=== PATIENT | female | born 1955 | race Caucasian/White ===

== ENCOUNTER 2017-03-12 14:36 | Inpatient (IN) | payer OTHER ==
[~2017-03-12] VITALS: Ht 165.1 cm; Wt 99.8 kg
[~2017-03-12 14:36] MED LIST: ALBUTEROL 90MCG INH; AMLO5TAB4 PO; BUSP5TAB PO; CALC-157 PO; CETI10TA22 PO; CLON0.5T PO; CYCL-331 PO; ESCI20TA PO; FISH OIL PO; FLUT1DIS3 IH; FURO-69 PO; GABA-585 PO; HYDR-2758 PO; MINERALS PO; MONT10TA6 PO; MVI PO; OXYC-323 PO; PANT40TA5 PO; PRAM0.255 PO; TRIA1CAP13 PO; VITAMIN D 3 PO
--- NOTE | 2017-03-12 15:03 | PHYS DOC ---
General Chief Complaint: OVERDOSE Stated Complaint: DRUG INTAKE Time Seen by MD: 14:42 Source: patient Exam Limitations: no limitations Problems: History of Present Illness Initial Comments Pt is 61/F to ED with spouse for suicide attempt/intentional overdose. Pt states this am approximately 0100 she intentionally took between 24-27 1mg klonopin tabs. States this was deliberate attempt to end her life, she voices desire to in ED. She is drowsy but rouses to verbal stimuli, protecting her airway. No pain complaints. "I am not here wanting help." "How many should I take next time to see that I ." Pt does not answer when asked about stressors, her spouse recently diagnosed schizoaffective disorder and they both have new "therapy dog." Timing/Duration: other Severity: severe Modifying Factors: worse with medication, worse with movement, improves with rest Associated Symptoms: malaise, weakness, other Allergies: Coded Allergies: No Known Drug Allergies (Unverified , 09/01/15) Past Medical History Medical History: other (HTN, obesity, ANGEL, restless leg, CKD, gastric ulcer, asthma, uterine cancer) Surgical History: other (b/l TKR, ric, hysterectomy, tonsillectomy, trigger finger release, carpal tunnel, transposition L ulnar nerve) Social History Smoker: quit greater than 1 year Alcohol: none Drugs: none Review of Systems Constitutional: denies diaphoresis, denies fever EENTM: denies eye pain, denies ear pain, denies nose pain Respiratory: denies cough, denies shortness of breath Cardiovascular: denies chest pain, denies palpitations Gastrointestinal: denies diarrhea, denies nausea, denies vomiting Musculoskeletal: denies back pain, denies joint swelling, denies neck pain Psychiatric/Neurological: see HPI Physical Exam General Appearance: no apparent distress (drowsy/lethargic) Eyes: bilateral eye normal inspection, bilateral eye PERRL, bilateral eye EOMI Ear, Nose, Throat: hearing grossly normal, normal ENT inspection, normal pharynx Neck: non-tender, supple Respiratory: normal breath sounds, no respiratory distress Cardiovascular: normal peripheral pulses, regular rate, rhythm Gastrointestinal: non tender, soft Back: no CVA tenderness, no vertebral tenderness Extremities: normal range of motion, normal inspection Neurologic/Psychiatric: administration professional II-XII nml as tested, no motor/sensory deficits, oriented x 3, depressed affect, other (sleepy but easily rousable, +SI) Skin: normal color, warm/dry Orders, Labs, Meds EKG: NSR 81 bpm, diffuse T flattening no STEMI RN contacted poison control, labs/EKG recommended and ordered. No activated charcoal due to buspar, recommend overnight admission/observation for VS stability/seizure potential. I discussed this with Dr Rehman who accepts ICU admission (needs 1:1) Departure Disposition: ADMITTED INPATIENT Diagnosis: suicide attempt, bzd overdose Condition: GUARDED MICHELLE TODD DO March 12, 2017 15:03
--- NOTE | 2017-03-12 15:21 | RAD ---
EXAM: CHEST 1 VIEW History: Overdose, lethargy, weakness. Comparison: 09/01/2015 TECHNIQUE: Single portable radiograph of the chest FINDINGS: The cardiac silhouette is unremarkable. The lungs are clear bilaterally. The costophrenic sulci are clear and well demarcated. IMPRESSION: No radiographic evidence of an acute cardiopulmonary process.
[2017-03-12 15:41] LABS: BASO % 1 % (0-3); EOS # 0.2 x10^3/uL (0.0-0.7); EOS % 5 % (0-3); HEMATOCRIT 35.3 % (36.0-47.0); LYMPH % 31 % (24-48); MEAN CORPUSCULAR HEMOGLOBIN 28 pg (25-35); MEAN CORPUSCULAR HGB CONC 34 g/dL (31-37); MEAN CORPUSCULAR VOLUME 81 fL (79-100); MONO # 0.5 x10^3/uL (0.0-1.1); MONO % 16 % (0-9); NEUT # 1.5 x10^3uL (1.8-7.7); NEUT % 46 % (31-73); PLATELET COUNT 216 x10^3/uL (140-400); RED BLOOD COUNT 4.35 x10^6/uL (3.50-5.40); RED CELL DISTRIBUTION WIDTH 14.4 % (11.5-14.5); WHITE BLOOD COUNT 3.3 x10^3/uL (4.0-11.0)
[2017-03-12] MEDS ORDERED: ACETAMINOPHEN 325 MG TABLET PO PRN (16:00)
[2017-03-12] MEDS ORDERED: ONDANSETRON PF 4 MG/2 ML VIAL. IV PRN (16:00)
[2017-03-12 16:04] LABS: ALBUMIN 3.1 g/dL (3.4-5.0); CREATININE 0.7 mg/dL (0.6-1.0); GFR 85.4; POTASSIUM 3.4 mmol/L (3.5-5.1); TOTAL BILIRUBIN 0.4 mg/dL (0.2-1.0); TOTAL PROTEIN 6.1 g/dL (6.4-8.2)
[2017-03-12 16:20] LABS: BARBITURATES NEG (NEG); BENZODIAZEPINES POS (NEG); CANNABINOIDS NEG (NEG); COCAINE NEG (NEG); METHADONE NEG (NEG); OPIATES NEG (NEG); PHENCYCLIDINE NEG (NEG)
[2017-03-12 16:25] LABS: BILIRUBIN,URINE NEG (NEG); CLARITY,URINE CLEAR; COLOR,URINE STRAW; GLUCOSE,URINE NEG (NEG); NITRITE,URINE NEG (NEG); UROBILINOGEN,URINE 0.2 mg/dL (0.2 mg/dL)
[2017-03-12 16:26] LABS: AMORPHOUS SEDIMENT,UR PRESENT /HPF; BACTERIA,URINE 0 /HPF (0-FEW); RBC,URINE 0 /HPF (0-2); SQUAMOUS EPITHELIAL CELL,UR OCC /LPF; WBC,URINE OCC /HPF (0-4)
[2017-03-12 16:31] LABS: AMPHETAMINE/METHAMPHETAMINE NEG (NEG)
[2017-03-12 17:00] VITALS: BP 148/65
[2017-03-12] MEDS: IV NORMAL SALINE 1,000ML 1,000 ML IV SCH (17:59)
[2017-03-12 18:03] VITALS: BP 115/53
[2017-03-12] MEDS ORDERED: VALS80TA3 PO (18:17)
[2017-03-12] MEDS ORDERED: TRIA1CAP3 PO (18:20)
[2017-03-12] MEDS ORDERED: FLUO40CA9 PO (18:21)
[2017-03-12] MEDS ORDERED: ALBUTEROL SULFATE 2.5 MG/0.5 ML NEBU. NEB PRN (19:00)
--- NOTE | 2017-03-12 19:07 | ACF ---
Admission Criteria Forms DRUG INGESTION OR OVERDOSE Clinical Indications for Admission to Inpatient Care ( Place 'X' for any and all applicable criteria): Admission is indicated for severe toxicity as indicated by ANY ONE of the following(1)(2)(3)(4)(5)(6): [X]I. Inpatient admission required rather than observation care (Also use Drug Ingestion or Overdose: Observation Care guideline as appropriate) because of ANY ONE of the following: [ ]a) Altered mental status that is severe or persistent [ ]b) Clinical finding (eg, metabolic acidosis, hypoglycemia, bradycardia) that is severe or persistent [ ]c) Toxic drug level that is persistent [X]d) Psychiatric risk status not acceptable for outpatient management [ ]e) Continuous intravenous infusion of anticoagulation, platelet inhibitor, vasoactive, or antiarrhythmic medication (15)(16) [ ]f) Other condition, treatment or monitoring requiring inpatient admission [ ]II. Respiratory abnormalities [ ]III. Specific finding indicating severe and likely prolonged drug toxicity [ ]IV. Hemodynamic instability [ ]V. Dangerous arrhythmia [ ]. Hypertension requiring inpatient treatment Extended stay beyond goal length of stay may be needed for (4): [ ]a) Neurologic or respiratory compromise [ ]b) Hemodynamic instability [ ]c) Persistent toxic drug levels (25) [ ]d) Severe drug toxicities or complications [ ]e) Ongoing antidote treatment (eg, acetaminophen overdose)(5) [ ]f) Older patients(65 years or older) The original [employer] content created by [employer] has been revised. The portions of the content which have been revised are identified through the use of italic text or in bold, and [facility] has neither reviewed nor approved the modified material. All other unmodified content is copyright [facility]. Please see references footnoted in the original [facility] edition 2016 Admission Criteria Met?: Yes QUINCY MANZANO March 12, 2017 19:06
[2017-03-12 19:10] VITALS: BP 107/54
--- NOTE | 2017-03-12 19:59 | PDOC ---
Exam Ja Demential Exam: Ja Note: Please also refer to the separate dictated note~for this date of service dictated separately.~Patient seen individually. Discussed the patient with Nursing staff reviewed the chart.~Reviewed interim history and current functioning. Reviewed vital signs,~Labs/ Radiology~and current medications noted below. Continue current treatment with the changes noted in the dictated addendum note Assessment: Vital Signs: Vital Signs Date Time Temp Pulse Resp B/P (MAP) Pulse Ox O2 Delivery O2 Flow Rate FiO2 03/12/17 19:10 64 16 107/54 (71) 99 Room Air 03/12/17 17:00 98.2 Labs: Laboratory Tests Test 03/12/17 15:11 03/12/17 15:40 White Blood Count 3.3 x10^3/uL (4.0-11.0) L Red Blood Count 4.35 x10^6/uL (3.50-5.40) Hemoglobin 12.0 g/dL (12.0-15.5) Hematocrit 35.3 % (36.0-47.0) L Mean Corpuscular Volume 81 fL (79-100) Mean Corpuscular Hemoglobin 28 pg (25-35) Mean Corpuscular Hemoglobin Concent 34 g/dL (31-37) Red Cell Distribution Width 14.4 % (11.5-14.5) Platelet Count 216 x10^3/uL (140-400) Neutrophils (%) (Auto) 46 % (31-73) Lymphocytes (%) (Auto) 31 % (24-48) Monocytes (%) (Auto) 16 % (0-9) H Eosinophils (%) (Auto) 5 % (0-3) H Basophils (%) (Auto) 1 % (0-3) Neutrophils # (Auto) 1.5 x10^3uL (1.8-7.7) L Lymphocytes # (Auto) 1.0 x10^3/uL (1.0-4.8) Monocytes # (Auto) 0.5 x10^3/uL (0.0-1.1) Eosinophils # (Auto) 0.2 x10^3/uL (0.0-0.7) Basophils # (Auto) 0.0 x10^3/uL (0.0-0.2) Sodium Level 138 mmol/L (136-145) Potassium Level 3.4 mmol/L (3.5-5.1) L Chloride Level 101 mmol/L (98-107) Carbon Dioxide Level 29 mmol/L (21-32) Anion Gap 8 (6-14) Blood Urea Nitrogen 12 mg/dL (7-20) Creatinine 0.7 mg/dL (0.6-1.0) Estimated GFR (Cockcroft-Gault) 85.4 BUN/Creatinine Ratio 17 (6-20) Glucose Level 144 mg/dL (70-99) H Lactic Acid Level 0.8 mmol/L (0.4-2.0) Calcium Level 9.0 mg/dL (8.5-10.1) Total Bilirubin 0.4 mg/dL (0.2-1.0) Aspartate Amino Transferase (AST) 25 U/L (15-37) Alanine Aminotransferase (ALT) 48 U/L (14-59) Alkaline Phosphatase 134 U/L (46-116) H Creatine Kinase 242 U/L (26-192) H Troponin I Quantitative < 0.017 ng/mL (0-0.055) OL-Isv-H-Type Natriuretic Peptide 94 pg/mL (0-124) Total Protein 6.1 g/dL (6.4-8.2) L Albumin 3.1 g/dL (3.4-5.0) L Albumin/Globulin Ratio 1.0 (1.0-1.7) Urine Collection Type Unknown Urine Color Straw Urine Clarity Clear Urine pH 7.0 Urine Specific [place] 1.010 Urine Protein Neg (NEG-TRACE) Urine Glucose (UA) Neg mg/dL (NEG) Urine Ketones (Stick) Neg mg/dL (NEG) Urine Blood Neg (NEG) Urine Nitrite Neg (NEG) Urine Bilirubin Neg (NEG) Urine Urobilinogen Dipstick 0.2 mg/dL (0.2 mg/dL) Urine Leukocyte Esterase Neg (NEG) Urine RBC 0 /HPF (0-2) Urine WBC Occ /HPF (0-4) Urine Squamous Epithelial Cells Occ /LPF Urine Amorphous Sediment Present /HPF Urine Bacteria 0 /HPF (0-FEW) Urine Mucus Slight /LPF Urine Opiates Screen Neg (NEG) Urine Methadone Screen Neg (NEG) Urine Barbiturates Neg (NEG) Urine Phencyclidine Screen Neg (NEG) Urine Amphetamine/Methamphetamine Neg (NEG) Urine Benzodiazepines Screen Pos (NEG) Urine Cocaine Screen Neg (NEG) Urine Cannabinoids Screen Neg (NEG) Urine Ethyl Alcohol Neg (NEG) Current Medications: Meds: Current Medications Ondansetron HCl (Zofran) 4 mg PRN Q4HRS PRN IV NAUSEA/VOMITING; Start 03/12/17 at 16:00; Stop 03/13/17 at 15:59 Sodium Chloride 1,000 ml @ 120 mls/hr Q8H20M IV Last administered on t 17:59; Start 03/12/17 at 16:15; Stop 03/13/17 at 16:14 Acetaminophen (Tylenol) 650 mg PRN Q4HRS PRN PO FEVER; Start 03/12/17 at 16:00 ; Stop 03/13/17 at 15:59 Potassium Chloride (Klor-Con) 20 meq BID PO ; Start 03/12/17 at 21:00 Buspirone HCl (Buspar) 15 mg BID PO ; Start 03/12/17 at 21:00 Calcium/Vitamin D (Oscal D 500mg/ 200uts) 1 tab BID PO ; Start 03/12/17 at 21:00 Cetirizine HCl (Zyrtec) 10 mg DAILY PO ; Start 03/13/17 at 09:00 Montelukast Sodium (Singulair) 10 mg HS PO ; Start 03/12/17 at 21:00 Pantoprazole Sodium (Protonix) 40 mg DAILYAC PO ; Start 03/13/17 at 07:30 Pramipexole Dihydrochloride (miraPEX) 1.5 mg QHS PO ; Start 03/12/17 at 21:00 Fluoxetine HCl (Prozac) 40 mg DAILY PO ; Start 03/13/17 at 09:00 Budesonide (Pulmicort) 0.5 mg RTBID NEB ; Start 03/12/17 at 20:00 Triamterene/HCTZ (Maxzide 37.5/ 25mg) 1 tab DAILY PO ; Start 03/13/17 at 09:00 Losartan Potassium (Cozaar) 50 mg DAILY PO ; Start 03/13/17 at 09:00 Albuterol Sulfate (Ventolin) 2.5 mg PRN Q4HRS PRN NEB SOA; Start 03/12/17 at 19 :00 Fish Oil (Fish Oil) 1,000 mg BID PO ; Start 03/12/17 at 21:00 Multivitamins/ Calcium (Thera-M Plus) 1 tab DAILY PO ; Start 03/13/17 at 09:00 Vitamin D (Vitamin D3) 2,000 unit DAILY PO ; Start 03/13/17 at 09:00 Albuterol Sulfate (Ventolin) 2.5 mg RTQID NEB ; Start 03/12/17 at 20:00 Active Scripts Active Reported Prozac (Fluoxetine Hcl) 40 Mg Capsule 1 Cap PO DAILY Triamterene-Hctz 37.5-25 Mg Cp (Triamterene/Hydrochlorothiazid) 1 Each Capsule 1 Cap PO DAILY Diovan (Valsartan) 80 Mg Tablet 1 Tab PO DAILY Zyrtec (Cetirizine Hcl) 10 Mg Tablet 1 Tab PO DAILY LAST DOSE GIVEN: DATE: TIME: NEXT DOSE DUE: DATE: TIME: [Vitamin D 3] 2,000 Intlu PO BID LAST DOSE GIVEN: DATE: TIME: NEXT DOSE DUE: DATE: TIME: [Fish Oil] 1,200 Mg PO BID LAST DOSE GIVEN: DATE: TIME: NEXT DOSE DUE: DATE: TIME: [Mvi + Minerals] 1 PO DAILY LAST DOSE GIVEN: DATE: TIME: NEXT DOSE DUE: DATE: TIME: Mirapex (Pramipexole Di-Hcl) 0.25 Mg Tablet 1.5 Mg PO QHS LAST DOSE GIVEN: DATE: TIME: NEXT DOSE DUE: DATE: TIME: Cyclobenzaprine Hcl 10 Mg Tablet 1 Tab PO PRN QHS PRN LAST DOSE GIVEN: DATE: TIME: NEXT DOSE DUE: DATE: TIME: Calcium 500 + Vit D 200 Tablet (Calcium Carbonate/Vitamin D3) 1 Each Tablet 1 Each PO BID LAST DOSE GIVEN: DATE: TIME: NEXT DOSE DUE: DATE: TIME: [Albuterol 90MCG] 90 Mcg INH PRN Q4-6HRS PRN LAST DOSE GIVEN: DATE: TIME: NEXT DOSE DUE: DATE: TIME: Singulair Tablet (Montelukast Sodium) 10 Mg Tablet 10 Tab PO HS LAST DOSE GIVEN: DATE: TIME: NEXT DOSE DUE: DATE: TIME: Advair 250-50 Diskus (Fluticasone/Salmeterol) 1 Each Disk.w.dev 1 Puff IH BID LAST DOSE GIVEN: DATE: TIME: NEXT DOSE DUE: DATE: TIME: Klonopin (Clonazepam) 0.5 Mg Tablet 1 Tab PO HS LAST DOSE GIVEN: DATE: TIME: NEXT DOSE DUE: DATE: TIME: Buspirone Hcl 5 Mg Tablet 15 Mg PO BID LAST DOSE GIVEN: DATE: TIME: NEXT DOSE DUE: DATE: TIME: Pantoprazole Sodium 40 Mg Tablet.dr 1 Tab PO DAILYAC LAST DOSE GIVEN: DATE: TIME: NEXT DOSE DUE: DATE: TIME: DAVION REYES MD March 12, 2017 19:59
[2017-03-12 20:00] VITALS: BP 110/52
[2017-03-12] MEDS: BUDESONIDE 0.5 MG/2 ML NEBU NEB SCH (20:00)
[2017-03-12] MEDS: ALBUTEROL SULFATE 2.5 MG/0.5 ML NEBU. NEB SCH (20:00)
[2017-03-12] MEDS ORDERED: PRAMIPEXOLE 0.25 MG TABLET. PO SCH (21:00)
[2017-03-12] MEDS: MONTELUKAST 10 MG TABLET. PO SCH (21:02)
[2017-03-12] MEDS: CALCIUM CARB/VIT D3 500/200 TABLET PO SCH (21:02)
[2017-03-12] MEDS: OMEGA-3 FATTY ACIDS/FISH OIL 1,000 MG CAPSULE. PO SCH (21:02)
[2017-03-12] MEDS: POTASSIUM CHLORIDE 20 MEQ TABLET.ER. PO SCH (21:02)
[2017-03-12] MEDS: busPIRone 5 MG TABLET. PO SCH (21:03)
[2017-03-12 22:00] VITALS: BP 107/50
[2017-03-12 23:00] VITALS: BP 98/44
[2017-03-13] VITALS (20 sets, daily range): BP systolic 99–144; BP diastolic 49–79
[2017-03-13] MEDS: IV NORMAL SALINE 1,000ML 1,000 ML IV SCH ×2 (01:49→10:14)
[2017-03-13 03:37] LABS: BASO # 0.1 x10^3/uL (0.0-0.2); BASO % 2 % (0-3); EOS # 0.2 x10^3/uL (0.0-0.7); EOS % 5 % (0-3); HEMOGLOBIN 10.7 g/dL (12.0-15.5); LYMPH # 1.2 x10^3/uL (1.0-4.8); LYMPH % 36 % (24-48); MEAN CORPUSCULAR HEMOGLOBIN 27 pg (25-35); MEAN CORPUSCULAR HGB CONC 33 g/dL (31-37); MEAN CORPUSCULAR VOLUME 82 fL (79-100); MONO # 0.5 x10^3/uL (0.0-1.1); MONO % 14 % (0-9); NEUT # 1.5 x10^3uL (1.8-7.7); NEUT % 44 % (31-73); PLATELET COUNT 185 x10^3/uL (140-400); RED BLOOD COUNT 3.91 x10^6/uL (3.50-5.40); RED CELL DISTRIBUTION WIDTH 14.6 % (11.5-14.5); WHITE BLOOD COUNT 3.3 x10^3/uL (4.0-11.0)
[2017-03-13 04:17] LABS: CALCIUM 8.6 mg/dL (8.5-10.1); CREATININE 0.8 mg/dL (0.6-1.0); GFR 73.2; POTASSIUM 3.5 mmol/L (3.5-5.1)
[2017-03-13 06:58] LABS: ACETAMIN 4.5 mcg/mL (10-30)
[2017-03-13] MEDS: busPIRone 5 MG TABLET. PO SCH ×2 (07:44→21:32)
[2017-03-13] MEDS: CHOLECALCIFEROL (VITAMIN D3) 1,000 UNIT TABLET PO SCH (07:44)
[2017-03-13] MEDS: TRIAMTERENE/HCTZ 37.5/25MG TABLET. PO SCH (07:45)
[2017-03-13] MEDS: MULTIVITAMIN with MINERAL TABLET. PO SCH (07:45)
[2017-03-13] MEDS: CETIRIZINE HCL 10 MG TABLET PO SCH (07:45)
[2017-03-13] MEDS: PANTOPRAZOLE 40 MG TABLET. PO SCH (07:45)
[2017-03-13] MEDS: LOSARTAN 50 MG TABLET. PO SCH (07:45)
[2017-03-13] MEDS: POTASSIUM CHLORIDE 20 MEQ TABLET.ER. PO SCH ×2 (07:45→21:33)
[2017-03-13] MEDS: OMEGA-3 FATTY ACIDS/FISH OIL 1,000 MG CAPSULE. PO SCH ×2 (07:45→21:34)
[2017-03-13] MEDS: CALCIUM CARB/VIT D3 500/200 TABLET PO SCH ×2 (07:45→21:32)
[2017-03-13] MEDS: ALBUTEROL SULFATE 2.5 MG/0.5 ML NEBU. NEB SCH ×4 (08:00→20:32)
[2017-03-13] MEDS ORDERED: ARIP5TAB13 PO (08:49)
--- NOTE | 2017-03-13 09:45 | EKG ---
[address] [address] Test Date: 2017-03-12 Test Time: 14:54:20 Pat Name: YELENA MORGAN Department: Room: [facility] 1 Gender: F Market Research Specialist: BARBARA : [id number] Requested By: MICHELLE TODD Order Number: [id number] Reading MD: Doyle Latham Measurements Intervals [place] Rate: 81 P: 55 MT: 154 QRS: -1 QRSD: 84 T: 31 QT: 392 QTc: 456 Interpretive Statements SINUS RHYTHM Electronically Signed On 03-14-2017 10:38:55 CDT by Doyle Latham
[2017-03-13] MEDS ORDERED: POTASSIUM CHLORIDE 20 MEQ TABLET.ER. PO ONE (10:30)
[2017-03-13] MEDS: BUDESONIDE 0.5 MG/2 ML NEBU NEB SCH ×2 (11:54→20:32)
[2017-03-13] MEDS: FLUoxetine HCL 20 MG CAPSULE PO SCH (12:13)
--- NOTE | 2017-03-13 13:10 | HP ---
ADMIT DATE: 03/12/2017 HISTORY OF PRESENT ILLNESS: This is a 61-year-old female who has a longstanding problem with depression and anxiety which she states for the last [address]. [address] Miramontes last Monday who prescribed Abilify 2.5 mg tablets, but she just has been despondent over multiple things, so took 24 to 27 1 mg Klonopin tablets. She was brought to Emergency Room by her . The patient states her has been diagnosed with schizoaffective borderline personality disorder and he is not able to meet her emotional needs. She has also been going to a counselor in [place] who only takes jimenez and she can no longer afford to go to him. The patient feels that she needs hospitalization for her ongoing depression. PAST MEDICAL HISTORY: Depression, anxiety, hypertension, obstructive sleep apnea, restless legs syndrome, chronic kidney disease, reflux and asthma. She does use CPAP. She has severe insomnia and arthritis. PAST SURGICAL HISTORY: Recent bone on her left thumb removed for arthritis 2 weeks ago, hysterectomy for uterine cancer in 2013, bilateral total knee arthroplasty, cholecystectomy, tonsillectomy and has had EGDs and colonoscopies. ALLERGIES: None. MEDICATIONS: The patient had a list which should be accurate on the computer on the eMAR, previous antidepressants, Celexa, Paxil, Lamictal and Lexapro, but she is currently on Prozac. HABITS: The patient does not work, does not smoke, but did drink some alcohol along with the Klonopin about third of a couple of some type of liquor. REVIEW OF SYSTEMS: Eight pound weight gain in the last 2 weeks, insomnia, ongoing depression, restless legs, very anxious and tearful and anxiety. OBJECTIVE: VITAL SIGNS: Blood pressure 112/63, pulse 88, respirations 20 and pulse ox is 94% on room air. Height 65 inches, weight 218 pounds. GENERAL: A 61-year-old somewhat tearful, in no acute distress. HEENT: Her hearing was normal. Her pupils were equal, round, react to light. Extraocular muscles were intact. ____. Nose was patent. Throat was clear. Wide scars of tonsillectomy noted. NECK: Supple, without adenopathy. LUNGS: Clear to auscultation. CARDIOVASCULAR: Regular rhythm and rate. ABDOMEN: Soft, nontender, no masses palpated. EXTREMITIES: Without edema. Left forearm and hand are in a cast. NEUROLOGIC: She is intact. Her mood is flat and tearful. LABORATORY DATA: White cell count 3.3, hemoglobin 10.7, hematocrit 32.0 that is after fluid. Chemistry negative troponins, potassium is 3.5 this morning, was 3.4 yesterday. Drug screen is positive for benzos, negative for alcohol. Urinalysis is negative. Chest x-ray is negative. ASSESSMENT: 1. Suicide attempt. 2. Major depressive disorder. 3. Ongoing longstanding depression and anxiety. 4. Severe insomnia. 5. History of uterine cancer. 6. Mild hypokalemia. PLAN: Treat hypokalemia if it has not been treated. The patient desires hospitalization for depression. Dr. Miramontes will see this afternoon and we will treat her medical conditions. RADHA LEE DO DR: ADALBERTO/marie JOB#: [id number] / [id number]
[2017-03-13] MEDS ORDERED: PRAMIPEXOLE 0.25 MG TABLET. PO SCH (18:15)
--- NOTE | 2017-03-13 20:55 | PDOC ---
Exam Ja Demential Exam: Ja Note: Please also refer to the separate dictated note~for this date of service dictated separately.~Patient seen individually. Discussed the patient with Nursing staff reviewed the chart.~Reviewed interim history and current functioning. Reviewed vital signs,~Labs/ Radiology~and current medications noted below. Continue current treatment with the changes noted in the dictated addendum note Assessment: Vital Signs: Vital Signs Date Time Temp Pulse Resp B/P (MAP) Pulse Ox O2 Delivery O2 Flow Rate FiO2 03/13/17 20:33 97 Room Air 03/13/17 19:34 98.1 74 16 144/64 (90) I&O Intake and Output 03/13/17 07:00 Intake Total 1805 ml Output Total 702 ml Balance 1103 ml Intake Oral 420 ml IV Total 1385 ml Output Urine Total 702 ml # Voids 1 Labs: Laboratory Tests Test 03/12/17 22:05 03/13/17 03:05 Troponin I Quantitative < 0.017 ng/mL (0-0.055) < 0.017 ng/mL (0-0.055) White Blood Count 3.3 x10^3/uL (4.0-11.0) L Red Blood Count 3.91 x10^6/uL (3.50-5.40) Hemoglobin 10.7 g/dL (12.0-15.5) L Hematocrit 32.0 % (36.0-47.0) L Mean Corpuscular Volume 82 fL (79-100) Mean Corpuscular Hemoglobin 27 pg (25-35) Mean Corpuscular Hemoglobin Concent 33 g/dL (31-37) Red Cell Distribution Width 14.6 % (11.5-14.5) H Platelet Count 185 x10^3/uL (140-400) Neutrophils (%) (Auto) 44 % (31-73) Lymphocytes (%) (Auto) 36 % (24-48) Monocytes (%) (Auto) 14 % (0-9) H Eosinophils (%) (Auto) 5 % (0-3) H Basophils (%) (Auto) 2 % (0-3) Neutrophils # (Auto) 1.5 x10^3uL (1.8-7.7) L Lymphocytes # (Auto) 1.2 x10^3/uL (1.0-4.8) Monocytes # (Auto) 0.5 x10^3/uL (0.0-1.1) Eosinophils # (Auto) 0.2 x10^3/uL (0.0-0.7) Basophils # (Auto) 0.1 x10^3/uL (0.0-0.2) Sodium Level 138 mmol/L (136-145) Potassium Level 3.5 mmol/L (3.5-5.1) Chloride Level 104 mmol/L (98-107) Carbon Dioxide Level 26 mmol/L (21-32) Anion Gap 8 (6-14) Blood Urea Nitrogen 9 mg/dL (7-20) Creatinine 0.8 mg/dL (0.6-1.0) Estimated GFR (Cockcroft-Gault) 73.2 Glucose Level 100 mg/dL (70-99) H Calcium Level 8.6 mg/dL (8.5-10.1) Magnesium Level 2.1 mg/dL (1.8-2.4) Creatine Kinase 151 U/L (26-192) Vitamin B12 Level 986 pg/mL (247-911) H Thyroid Stimulating Hormone (TSH) 0.587 uIU/mL (0.358-3.740) Acetaminophen Level 4.5 mcg/mL (10-30) L Acetaminophen Last Dose Date 03/12/2017 Acetaminophen Last Dose Time 0030 Current Medications: Meds: Current Medications Ondansetron HCl (Zofran) 4 mg PRN Q4HRS PRN IV NAUSEA/VOMITING; Start 03/12/17 at 16:00; Stop 03/13/17 at 15:59; Status DC Sodium Chloride 1,000 ml @ 120 mls/hr Q8H20M IV Last administered on 10:14; Start 03/12/17 at 16:15; Stop 03/13/17 at 16:14; Status DC Acetaminophen (Tylenol) 650 mg PRN Q4HRS PRN PO FEVER; Start 03/12/17 at 16:00 ; Stop 03/13/17 at 15:59; Status DC Potassium Chloride (Klor-Con) 20 meq BID PO Last administered on 03/13/17 07: 45; Start 03/12/17 at 21:00 Buspirone HCl (Buspar) 15 mg BID PO Last administered on 03/13/17 07:44; Start 03/12/17 at 21:00 Calcium/Vitamin D (Oscal D 500mg/ 200uts) 1 tab BID PO Last administered on 07:45; Start 03/12/17 at 21:00 Cetirizine HCl (Zyrtec) 10 mg DAILY PO Last administered on 03/13/17 07:45; Start 03/13/17 at 09:00 Montelukast Sodium (Singulair) 10 mg HS PO Last administered on 03/12/17 21:02 ; Start 03/12/17 at 21:00 Pantoprazole Sodium (Protonix) 40 mg DAILYAC PO Last administered on 03/13/17 07:45; Start 03/13/17 at 07:30 Pramipexole Dihydrochloride (miraPEX) 1.5 mg QHS PO Last administered on 21:02; Start 03/12/17 at 21:00; Stop 03/13/17 at 18:16; Status DC Fluoxetine HCl (Prozac) 40 mg DAILY PO Last administered on 03/13/17 12:13; Start 03/13/17 at 09:00 Budesonide (Pulmicort) 0.5 mg RTBID NEB Last administered on 03/13/17 20:32; Start 03/12/17 at 20:00 Triamterene/HCTZ (Maxzide 37.5/ 25mg) 1 tab DAILY PO Last administered on 07:45; Start 03/13/17 at 09:00 Losartan Potassium (Cozaar) 50 mg DAILY PO Last administered on 03/13/17 07:45 ; Start 03/13/17 at 09:00 Albuterol Sulfate (Ventolin) 2.5 mg PRN Q4HRS PRN NEB SOA; Start 03/12/17 at 19 :00 Fish Oil (Fish Oil) 1,000 mg BID PO Last administered on 03/13/17 07:45; Start 03/12/17 at 21:00 Multivitamins/ Calcium (Thera-M Plus) 1 tab DAILY PO Last administered on 07:45; Start 03/13/17 at 09:00 Vitamin D (Vitamin D3) 2,000 unit DAILY PO Last administered on 03/13/17 07:44 ; Start 03/13/17 at 09:00 Albuterol Sulfate (Ventolin) 2.5 mg RTQID NEB Last administered on 03/13/17 20 :32; Start 03/12/17 at 20:00 Potassium Chloride (Klor-Con) 20 meq 1X ONCE PO Last administered on 12:13; Start 03/13/17 at 10:30; Stop 03/13/17 at 10:31; Status DC Pramipexole Dihydrochloride (miraPEX) 1.5 mg DAILYWSUP PO Last administered on 03/13/17 18:42; Start 03/13/17 at 18:15 Olanzapine (Zyprexa Zydis) 2.5 mg PRN Q2HR PRN PO ANXIETY / AGITATION; Start at 18:45 Active Scripts Active Reported Abilify (Aripiprazole) 5 Mg Tablet 1 Tab PO DAILY Prozac (Fluoxetine Hcl) 40 Mg Capsule 1 Cap PO DAILY Triamterene-Hctz 37.5-25 Mg Cp (Triamterene/Hydrochlorothiazid) 1 Each Capsule 1 Cap PO DAILY Diovan (Valsartan) 80 Mg Tablet 1 Tab PO DAILY Zyrtec (Cetirizine Hcl) 10 Mg Tablet 1 Tab PO DAILY LAST DOSE GIVEN: DATE: TIME: NEXT DOSE DUE: DATE: TIME: [Vitamin D 3] 2,000 Intlu PO BID LAST DOSE GIVEN: DATE: TIME: NEXT DOSE DUE: DATE: TIME: [Fish Oil] 1,200 Mg PO BID LAST DOSE GIVEN: DATE: TIME: NEXT DOSE DUE: DATE: TIME: [Mvi + Minerals] 1 PO DAILY LAST DOSE GIVEN: DATE: TIME: NEXT DOSE DUE: DATE: TIME: Mirapex (Pramipexole Di-Hcl) 0.25 Mg Tablet 1.5 Mg PO QHS LAST DOSE GIVEN: DATE: TIME: NEXT DOSE DUE: DATE: TIME: Cyclobenzaprine Hcl 10 Mg Tablet 1 Tab PO PRN QHS PRN LAST DOSE GIVEN: DATE: TIME: NEXT DOSE DUE: DATE: TIME: Calcium 500 + Vit D 200 Tablet (Calcium Carbonate/Vitamin D3) 1 Each Tablet 1 Each PO BID LAST DOSE GIVEN: DATE: TIME: NEXT DOSE DUE: DATE: TIME: [Albuterol 90MCG] 90 Mcg INH PRN Q4-6HRS PRN LAST DOSE GIVEN: DATE: TIME: NEXT DOSE DUE: DATE: TIME: Singulair Tablet (Montelukast Sodium) 10 Mg Tablet 10 Tab PO HS LAST DOSE GIVEN: DATE: TIME: NEXT DOSE DUE: DATE: TIME: Advair 250-50 Diskus (Fluticasone/Salmeterol) 1 Each Disk.w.dev 1 Puff IH BID LAST DOSE GIVEN: DATE: TIME: NEXT DOSE DUE: DATE: TIME: Klonopin (Clonazepam) 0.5 Mg Tablet 1 Tab PO HS LAST DOSE GIVEN: DATE: TIME: NEXT DOSE DUE: DATE: TIME: Buspirone Hcl 5 Mg Tablet 15 Mg PO BID LAST DOSE GIVEN: DATE: TIME: NEXT DOSE DUE: DATE: TIME: Pantoprazole Sodium 40 Mg Tablet.dr 1 Tab PO DAILYAC LAST DOSE GIVEN: DATE: TIME: NEXT DOSE DUE: DATE: TIME: DAVION REYES MD March 13, 2017 20:55
[2017-03-13] MEDS: MONTELUKAST 10 MG TABLET. PO SCH (21:32)
[2017-03-14] VITALS (7 sets, daily range): BP systolic 110–143; BP diastolic 51–70
[2017-03-14] MEDS: ALBUTEROL SULFATE 2.5 MG/0.5 ML NEBU. NEB SCH ×2 (05:20→09:26)
[2017-03-14 06:47] LABS: BASO # 0.1 x10^3/uL (0.0-0.2); BASO % 1 % (0-3); EOS # 0.1 x10^3/uL (0.0-0.7); EOS % 3 % (0-3); HEMATOCRIT 32.6 % (36.0-47.0); LYMPH # 1.4 x10^3/uL (1.0-4.8); LYMPH % 36 % (24-48); MEAN CORPUSCULAR HEMOGLOBIN 28 pg (25-35); MEAN CORPUSCULAR HGB CONC 34 g/dL (31-37); MEAN CORPUSCULAR VOLUME 82 fL (79-100); MONO # 0.5 x10^3/uL (0.0-1.1); MONO % 12 % (0-9); NEUT # 1.8 x10^3uL (1.8-7.7); NEUT % 48 % (31-73); PLATELET COUNT 208 x10^3/uL (140-400); RED BLOOD COUNT 3.97 x10^6/uL (3.50-5.40); RED CELL DISTRIBUTION WIDTH 14.8 % (11.5-14.5); WHITE BLOOD COUNT 3.8 x10^3/uL (4.0-11.0)
[2017-03-14 06:51] LABS: ALBUMIN 3.1 g/dL (3.4-5.0); CALCIUM 8.8 mg/dL (8.5-10.1); GFR 56.6; MAGNESIUM 2.1 mg/dL (1.8-2.4); POTASSIUM 3.5 mmol/L (3.5-5.1); TOTAL BILIRUBIN 0.2 mg/dL (0.2-1.0); TOTAL PROTEIN 6.3 g/dL (6.4-8.2)
[2017-03-14] MEDS: MULTIVITAMIN with MINERAL TABLET. PO SCH (07:37)
[2017-03-14] MEDS: CALCIUM CARB/VIT D3 500/200 TABLET PO SCH (07:37)
[2017-03-14] MEDS: OMEGA-3 FATTY ACIDS/FISH OIL 1,000 MG CAPSULE. PO SCH (07:37)
[2017-03-14] MEDS: PANTOPRAZOLE 40 MG TABLET. PO SCH (07:37)
[2017-03-14] MEDS: POTASSIUM CHLORIDE 20 MEQ TABLET.ER. PO SCH (07:37)
[2017-03-14] MEDS: busPIRone 5 MG TABLET. PO SCH (07:37)
[2017-03-14] MEDS: TRIAMTERENE/HCTZ 37.5/25MG TABLET. PO SCH (07:38)
[2017-03-14] MEDS: LOSARTAN 50 MG TABLET. PO SCH (07:38)
[2017-03-14] MEDS: CHOLECALCIFEROL (VITAMIN D3) 1,000 UNIT TABLET PO SCH (07:38)
[2017-03-14] MEDS: CETIRIZINE HCL 10 MG TABLET PO SCH (07:38)
[2017-03-14] MEDS: FLUoxetine HCL 20 MG CAPSULE PO SCH (07:39)
[2017-03-14] MEDS: BUDESONIDE 0.5 MG/2 ML NEBU NEB SCH (09:26)
--- NOTE | 2017-03-14 13:19 | DS ---
DATE OF DISCHARGE: 03/14/2017 DISCHARGE DIAGNOSES: 1. Suicide attempt with Klonopin, medically stable. 2. Major depressive disorder. 3. Ongoing longstanding depression and anxiety. 4. Severe insomnia. 5. Restless leg syndrome. 6. History of uterine cancer. 7. Hypokalemia. 8. Chronic kidney disease. 9. Reflux. 10. Obstructive sleep apnea. HOSPITAL COURSE: A 61-year-old female, who has been somewhat distraught in regards to the relationship with her and has felt "tired" and in spite of seeing her psychiatrist, who prescribed Abilify last Monday, she became despondent and took 24 to 27 one mg Klonopin tablets. She was seen in the Emergency Room and she was stable throughout. She received some IV fluids and was seen in consultation by Dr. Miramontes, who recommends inpatient treatment. She also had a one-to-one sitter until deemed stable from that point of view. PHYSICAL EXAMINATION: VITAL SIGNS: On day of discharge 143/70, pulse 70, respirations 22, temperature 97.5, pulse ox 97% on room air. GENERAL: She is a little more shaky today without her Klonopin, but does not show any signs of withdrawal. NECK: Supple. LUNGS: Clear. CARDIOVASCULAR: Regular rhythm and rate. EXTREMITIES: Without edema. DISPOSITION: She has been accepted at [facility]. MEDICATIONS: Have been reconciled. RADHA LEE DO DR: ADALBERTO/marie JOB#: [id number] / [id number]
--- NOTE | 2017-03-14 22:35 | CONS ---
DATE OF CONSULTATION: 03/13/2017 PSYCHIATRIC CONSULTATION IDENTIFYING DATA: The patient is a 61-year-old female seen in ICU bed 3, [facility] for a psychiatric consult requested by Dr. Rehman on account of the patient's suicide attempt by overdose on 24 to 27 Klonopin tablets. While in the ICU, the patient has continued to make statements of wanting to be and has been on one-on-one status. CHIEF COMPLAINT: "I will not hurt myself here, but yes I want to . Nothing is going to get better." HISTORY OF PRESENT ILLNESS: The patient has a long history of depression, anxiety and possible bipolar disorder. She has been in outpatient psychiatric treatment for psychotherapy and medication management. Recent stressors include the being diagnosed with schizoid personality disorder and she states this was a message to her that "he will never change." She feels hopeless about the marital situation and is also very despondent that they do not have a grandchild. She has been increasingly paranoid, anxious, having sleep and appetite changes and some mood swings suggestive of bipolar disorder. PAST PSYCHIATRIC HISTORY: As above. MEDICAL HISTORY: I have reviewed notes by Dr. Rehman. CURRENT PSYCHOTROPICS: [facility]AD was reviewed. FAMILY HISTORY: Noncontributory. SOCIAL HISTORY: The patient lives at home with her . No alcohol or drug abuse history. She had been in psychotherapy, but has recently changed her therapist to the [facility]. MENTAL STATUS EXAMINATION: The patient was seen individually. I have seen her as an outpatient and she recognized me. She is well oriented. Her was in the room with her, corroborates all of the above symptoms. Mood is depressed, anxious. She was quite verbal about the stressors noted above, continues to have suicidal ideation, but denies she would do anything to hurt herself here in the hospital and states she will call out for help if she needs back on one-on-one status. Speech coherent, abstraction fair, computation impaired. Intellect average. Insight good. Judgment marginal consequent to a suicidal ideation. LABORATORY DATA: Reviewed. IMPRESSION: Major depressive disorder, recurrent, status post suicide attempt, anxiety disorder, unspecified; bipolar 1 disorder, mixed versus depressed. Rest diagnoses unchanged. PLAN: We will start the patient on Zyprexa 2.5 mg q. 2 hours p.r.n. psychosis, agitation, max 7.5 mg in 24 hours for her psychosis, agitation, mood lability. Continue the rest of the psychotropics. The patient will need inpatient psychiatric stabilization and she is agreeable to it and I have discussed also with Salma Krueger RN case manager about this. We will stop the one-on-one status and consider reinstating it if needed. DAVION REYES MD DR: STEPHANIE/marie JOB#: [id number] / [id number]
== END 2017-03-14 11:30 | DRG 917 ==
LOC: ER 14:36 → ICU 16:38
PROVIDERS: ADMIT Internal Medicine; ATTEND Internal Medicine
DX: T42.4X2A Poisoning by benzodiazepines, intentional self-harm, initial encounter (principal); G92 Toxic encephalopathy; F31.60 Bipolar disorder, current episode mixed, unspecified; E87.6 Hypokalemia; F41.9 Anxiety disorder, unspecified; G25.81 Restless legs syndrome; G47.00 Insomnia, unspecified; G47.33 Obstructive sleep apnea (adult) (pediatric); J45.909 Unspecified asthma, uncomplicated; K21.9 Gastro-esophageal reflux disease without esophagitis; N18.9 Chronic kidney disease, unspecified; Z96.653 Presence of artificial knee joint, bilateral; I12.9 Hypertensive chronic kidney disease with stage 1 through stage 4 chronic kidney disease, or unspecified chronic kidney disease; E66.9 Obesity, unspecified; M19.90 Unspecified osteoarthritis, unspecified site; Z85.42 Personal history of malignant neoplasm of other parts of uterus; Z87.11 Personal history of peptic ulcer disease; Z87.891 Personal history of nicotine dependence; Z91.5 Personal history of self-harm; Z68.36 Body mass index [BMI] 36.0-36.9, adult; Z90.710 Acquired absence of both cervix and uterus; Y92.89 Other specified places as the place of occurrence of the external cause
CPT/HCPCS: 36415; 71010; 80048; 80053; 81001; 82306; 82550; 82607; 83605; 83735; 83880; 84443; 84484; 85027; 87641; 93005; 94640; G0481; J7611; J7626; 99285-25; J7030